=== PATIENT | female | born 2005 | race Caucasian/White ===

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

== ENCOUNTER → 2023-01-08 07:50 | Outpatient (BNVA) | payer OTHER, SELFPAY | PROVIDERS: Family Provider Family Medicine; PCP Registered Nurse; Visit Provider Nurse Practitioner Women's Health | DX: R01.1 Cardiac murmur, unspecified (principal) | CPT/HCPCS: 76856 ==

== ENCOUNTER 2023-01-09 12:24 | Outpatient (CLI) | payer OTHER, SELFPAY ==
--- NOTE | 2023-01-09 12:45 | USCV_ITS ---
Alton Steele Age: 17 Gender: F : 2005 Exam Date: 01/09/2023 12:49 Ordering Phys: Jeannette Cannon [employer] OPERATOR Technologist: TRESSA [place]am [place] [facility] [place]: MURMUR BP: 120 / 60 HR: 55 Rhythm: Sinus Technical Quality: Adequate MEASUREMENTS (Male / Female) Normal Values 2D ECHO LVOT Diameter 2.0 cm LV Ejection Fraction MOD 2C 68.8 % LV Ejection Fraction 2C AL 70.3 % LA Diameter 2.4 cm LA Width 3.0 cm LA Height 3.1 cm RA Width 3.1 cm RA Height 3.1 cm Aorta at Sinotubular Diameter 1.9 cm IVC Diameter 1.3 cm M-MODE Aortic Annulus Diameter 2.4 cm LA Ao Ratio MM 1.0 MV E Point Septal Separation 0.6 cm DOPPLER AV Peak Velocity 158.0 cm/s LVOT Peak Velocity 114.0 cm/s AV Area Cont Eq vti 2.5 cm squared AV Area Cont Eq pk 2.2 cm squared MV Peak Velocity 161.0 cm/s MV Area PHT 3.7 cm squared Mitral E to A Ratio 2.2 MV E' Velocity 67.5 cm/s Mitral E to MV E' Ratio 6.0 Mitral E to LV E' Lateral Ratio 6.1 Mitral E to LV E' Septal Ratio 5.8 TR Peak Velocity 177.0 cm/s TR Peak Gradient 12.5 mmHg TR Mean Velocity 145.9 cm/s TR Mean Gradient 8.9 mmHg TR Velocity Time Integral 49.9 cm TV Peak E Velocity 75.0 cm/s Right Atrial Pressure 3.0 mmHg Pulmonary Artery Systolic Pressu 15.5 mmHg PV Peak Velocity 158.0 cm/s RV Acceleration Time 0.2 s RV Ejection Time 0.4 s RV AcT/ET 0.5 FINDINGS Left Ventricle Normal left ventricular size and systolic function, EF 67 %. No regional wall motion abnormalities. Right Ventricle The right ventricle is normal in size and function. Right Atrium The right atrium is normal in size. Left Atrium Atrial septal aneurysm, measuring 1.5 x 1.4 cm Mitral Valve Mild mitral valve regurgitation. Aortic Valve No gross abnormalities noted Tricuspid Valve Trace tricuspid valve regurgitation. Pulmonic Valve No gross abnormalities noted Pericardium Normal pericardium without effusion. Aorta Normal ascending aorta dimension. IVC Normal inferior vena cava. CONCLUSIONS Normal left ventricular size and systolic function, EF 67 %. No regional wall motion abnormalities. Atrial septal aneurysm, measuring 1.5 x 1.4 cm. Mild mitral valve regurgitation. Trace tricuspid valve regurgitation. Estimated pulmonary artery peak systolic pressure 16 mmHg There is no pericardial effusion. There are no intracardiac masses. No similar previous studies are available for comparison Dr Jorge Will MD [facility] (Electronically Signed) Final Date: 09 January 2023 17:44 S
== END 2023-01-09 12:25 | disposition home or self-care (01) ==
LOC: RAD 12:29
PROVIDERS: PCP Registered Nurse; Visit Provider Registered Nurse
DX: R01.1 Cardiac murmur, unspecified (principal); I08.1 Rheumatic disorders of both mitral and tricuspid valves; I72.8 Aneurysm of other specified arteries
CPT/HCPCS: C8929

== ENCOUNTER 2023-05-17 12:19 | Outpatient (CLI) | payer OTHER, SELFPAY ==
--- NOTE | 2023-05-17 | ECG_ITS ---
[facility] Test Date: 2023-05-17 Pat Name: Alton Chao Department: Room: Gender: Female [employer] Super[employer]: : 2005 Requested By: Samantha Ferrera Order Number: [id number] Destinee MD: Joleen Orantes M.D. Interpretive Statements NAME OF STUDY: TREADMILL STRESS TEST INDICATION: Abnormal EKG Baseline blood pressure of 147/59 mm Hg, heart rate of 70 beats per minute and oxygen saturation of 98%. EKG showed sinus rhythm, normal axis with nonspecific T wave inversion. Right ventricular conduction delay. The patient exercised for 11 minutes 36 seconds on a standard Asim protocol. Patient attained a maximum heart rate of 176 beats per minute(87% of the maximum predicted heart rate) with a blood pressure at the peak exercise of 187/54 mm Hg and oxygen saturation of 94%. The EKG at the peak exercise revealed sinus tachycardia with no significant ST-T wave changes. Patient did not have any chest pain or any significant arrhythmis with the exercise During the recovery phase, there were no new changes. Blood pressure at the end of the recovery phase was 169/81 mm Hg with a heart rate of 98 beats per minute saturation of 92%. CONCLUSION: 1. Normal EKG response to treadmill exercise. 2. No exercise-induced chest pain or cardiac arrhythmia. 3. Excellent exercise tolerance, attained a maximum of 13.5 METs. 4. Baseline hypertension with normal response to exercise. Electronically Signed On 06-10-2023 11:46:50 CDT by Joleen Orantes M.D. [email or web address]
[2023-05-17 12:32] VITALS: BMI 22.1
[2023-05-17 13:10] VITALS: BP 169/81; PULSE 95
== END 2023-05-17 12:20 | disposition home or self-care (01) ==
PROVIDERS: PCP Registered Nurse; Visit Provider Student in an Organized Health Care Education/Training Program
DX: R94.31 Abnormal electrocardiogram [ECG] [EKG] (principal)
CPT/HCPCS: 93017

== ENCOUNTER → 2024-08-06 10:28 | Outpatient (BNVA) | payer OTHER, SELFPAY | PROVIDERS: PCP Registered Nurse; Visit Provider Nurse Practitioner Women's Health | DX: Z12.4 Encounter for screening for malignant neoplasm of cervix (principal); N93.9 Abnormal uterine and vaginal bleeding, unspecified | CPT/HCPCS: 84439; 84443; 85025; 88175 ==

== ENCOUNTER → 2024-08-31 08:09 | Outpatient (BNVA) | payer OTHER, SELFPAY | PROVIDERS: PCP Registered Nurse; Visit Provider Nurse Practitioner Women's Health | DX: N93.9 Abnormal uterine and vaginal bleeding, unspecified (principal); D25.9 Leiomyoma of uterus, unspecified | CPT/HCPCS: 76856 ==

== ENCOUNTER 2024-09-16 15:26 | Outpatient (CLI) | payer OTHER, SELFPAY ==
--- NOTE | 2024-09-16 16:00 | MRR_ITS ---
PROCEDURE INFORMATION: Exam: MR Pelvis Without Contrast, Uterus and Adnexa Exam date and time: 09/16/2024 4:06 PM Age: 19 years old Clinical indication: Abnormal findings; Abnormal imaging test; Patient HX: Possible uterine fibroid from US on 08-31-24; Additional info: N85.8 - other specified noninflammatory disorders of uterus TECHNIQUE: Imaging protocol: Magnetic resonance imaging of the pelvis without contrast. Exam focused on the uterus, cervix, and adnexa. COMPARISON: US pelvic complete* [id number] 08/31/2024 8:12 AM FINDINGS: Uterus: The uterus is anteverted. The uterus measures 4.0 x 5.5 x 8.7 cm. The cervix is normal. There is a well-circumscribed relatively T2 hyperintense and slightly T1 hyperintense lesion within anterior uterine myometrium measuring 2.6 x 2.3 x 2.1 cm with signal characteristics that likely represents an endometrioma. Atypical fibroid is less likely but not excluded. Right ovary/adnexa: Follicular changes in the right ovary. The right ovary measures 2.9 x 2.3 x 1.9 cm. Left ovary/adnexa: Fascicular changes in the left ovary. Left ovary measures 1.8 x 2.9 x 1.8 cm. Intraperitoneal space: Physiologic free fluid in the pelvis. Lymph nodes: No enlarged nodes. Bones/joints: Unremarkable. No suspicious lesions. Soft tissues: Unremarkable. MR/MR pelvis wo con* [id number] IMPRESSION: Lesion in the anterior uterine myometrium with MRI characteristics favoring an endometrioma although atypical fibroid may be possible but less likely.
== END 2024-09-16 15:27 | disposition home or self-care (01) ==
LOC: RAD 15:26
PROVIDERS: PCP Registered Nurse; Visit Provider Nurse Practitioner Women's Health
DX: D25.9 Leiomyoma of uterus, unspecified (principal); N85.8 Other specified noninflammatory disorders of uterus; N93.9 Abnormal uterine and vaginal bleeding, unspecified
CPT/HCPCS: 72195